=== PATIENT | male | born 1950 | race Caucasian/White ===

== ENCOUNTER → 2024-05-10 08:01 | Outpatient (REF) | payer OTHER, SELFPAY | LOC: HWRCS 08:01 | PROVIDERS: ATTENDING PHYSICIAN Internal Medicine Cardiovascular Disease; FAMILY PHYSICIAN Family Medicine | DX: R06.09 Other forms of dyspnea (principal); I10 Essential (primary) hypertension; E78.49 Other hyperlipidemia | CPT/HCPCS: 93306 ==

== ENCOUNTER → 2024-05-12 10:19 | Outpatient (REF) | payer OTHER, SELFPAY | LOC: RCS 10:19 | PROVIDERS: ATTENDING PHYSICIAN Internal Medicine Cardiovascular Disease; FAMILY PHYSICIAN Family Medicine | DX: R06.09 Other forms of dyspnea (principal); I10 Essential (primary) hypertension; E78.49 Other hyperlipidemia | CPT/HCPCS: 93017 ==

== ENCOUNTER 2024-07-30 20:37 | Inpatient (IN) | payer OTHER, SELFPAY ==
[2024-07-30 15:34] VITALS: BP 168/88
[2024-07-30 15:51] LABS: % Basophils 0.1 % (0-2); % Immature Granulocytes 0.4 % (0-0.5); % Lymphocytes 4.9 % (20.5-51.1); % Monocytes 4.9 % (1.7-9.3); % Neutrophils 89.7 % (42.2-75.2); Absolute Immature Granulocytes 0.1 10^3/uL (0-0.05); Absolute Lymphocytes 1.1 10^3/uL (1.2-3.4); Absolute Monocytes 1.1 10^3/uL (0.1-0.6); Absolute Neutrophils 19.6 10^3/uL (1.4-6.5); Hemoglobin 15.9 g/dL (13.0-18.0); Mean Corp Hgb Conc. 36.1 g/dL (33.0-37.0); Mean Corpuscular Hgb 32.2 pg (27.0-31.0); Mean Corpuscular Volume 89.1 fL (80.0-94.0); Nucleated Red Blood Cells % 0 % (-); Platelet Count 211 10^3/uL (130-400); Red Blood Cell Count 4.94 10^6/uL (4.70-6.10); Red Cell Dist. Width 12.6 % (11.5-14.5); White Blood Cell Count 21.9 10^3/uL (4.8-10.8)
[2024-07-30 16:11] LABS: ALT (SGPT) 36 U/L (0-50); AST (SGOT) 32 U/L (17-59); Albumin 5.1 g/dl (3.5-5.0); Alkaline Phosphatase 54 U/L (38-126); Blood Urea Nitrogen 12 mg/dl (9-20); Calcium 9.8 mg/dl (8.4-10.2); Carbon Dioxide 26 mmol/L (22-30); Chloride 98 mmol/L (98-107); Glucose 158 mg/dl (70-99); Lipase 57 U/L (23-300); Potassium 4.9 mmol/L (3.5-5.1); Sodium 138 mmol/L (135-145); Total Bilirubin 3.3 mg/dl (0.2-1.3); Total Protein 7.7 g/dl (6.3-8.2); eGFR > 60.00
[2024-07-30 17:05] VITALS: BMI 30.4
[2024-07-30 17:11] VITALS: BP 123/71
[2024-07-30 18:00] VITALS: BP 126/63
[2024-07-30] MEDS: NSS 1000 IV (18:22)
[2024-07-30] MEDS: OFIRMEV 100 IV (18:23)
--- NOTE | 2024-07-30 18:37 | ED.GENMED ---
History of Present Illness
General
Chief Complaint: Abdominal Pain
Source: patient
Exam Limitations: none
Time Seen by Provider: 07/30/24 18:00
History of Present Illness
History of Present Illness:
This is a 74 year old male that comes in with c/o abd pain. States that yesterday he thought he had some food poisoning. States that he only eat one meat ball. Then by lat afternoon he felt very bloated and he had abd pain. States that he even tried
to make himself vomit. States that the pain continued to get worse and then started in the Right lower abd. States that he also tried enemas and he had 2 good BM's today. States that he is still having pain and that he had a fever of 100.7 today.
States that he is always SOB. States that he has a slight headache, lightheadedness. Denies any chills, chest pain, nausea, vomiting, diarrhea, urinary burning.
Past History
Past History
ED Past Medical History: HTN, Hypercholesterolemia and Other (Glaucoma)
ED Past Surgical History: Orthopedic (Right partial knee replacement. 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
Social History
Tobacco: Non-smoker
Alcohol: None
Personal:
Living: with family
Employment: Employed
Review of Systems
Review of Systems
All Other Systems: ROS reviewed and negative except as documented in HPI and ROS
Constitutional: Reports fever; Denies chills
EENT: Reports no symptoms
Respiratory: Reports trouble breathing (Always SOB); Denies cough
Cardiac: Reports no symptoms; Denies chest pain
ABD/GI: Reports abdominal pain; Denies nausea, vomiting or diarrhea
: Reports no symptoms; Denies dysuria, frequency or urgency
Musculoskeletal: Reports no symptoms
Skin: Reports no symptoms
Neurological: Reports headache and other (lightheaded); Denies dizzy
Psychiatric: Reports no symptoms
Phy Exam
General Physical Exam
General Presentation: mild distress
General age: appears stated age
General Skin: warm and dry
General Habitus: elderly
General Mental: alert
General Hydration: appears well hydrated
ENT Exam
ENT Exam: TM's normal, pharynx normal and neck supple
Eye Exam
Eye Exam: EOMI
Cardiovascular Exam
Cardiovascular Exam: regular rate/rhythm, no edema and normal peripheral pulses
Pulmonary Exam
Pulmonary Exam: lungs clear, no respiratory distress, no rales, chest non tender, no crackles, no rhonchi, no wheezing and no cough
Gastrointestinal Exam
Gastrointestinal Exam: soft, no organomegaly, no pulsatile mass, non distended, tender (Right sided abd tenderness with palpation, seems to be more upper then lower abd) and other (Hypoactive bowel sounds)
Musculoskeletal Exam
Musculoskeletal Exam: full ROM and no edema
Skin Exam
Skin Exam: normal color, warm/dry, no rash and no petechia
Psychiatric Exam
Psychiatric Exam: normal mood/affect
Course
Orders/Labs/Results
Orders:
Orders
07/30/24 15:44
Complete Blood Count/With Diff Urgent
Comprehensive Metabolic Panel Urgent
Lipase Urgent
07/30/24 18:12
CT Abd/pelvis W Iv Cont Urgent
Comment:
Reason For Exam: Right sided abd pain
0.9% Sodium Chloride 1000 ml [Nss] 1,000 ml IV BOLUS
Acetaminophen 1000MG/100Ml [Ofirmev] 1,000 mg in 100 ml IV ONCE
Acetaminophen IV Indication:: ED Narcotic Naive Pt-ONCE
07/30/24 18:13
Urinalysis Reflex To Culture Urgent
Date Specimen was Collected: 07/30/24
Time Specimen was Collected: 19:29
07/30/24 19:30
Piperacillin/Tazo 3.375 Gram [Zosyn] 3.375 gram in 50 ml IV NOW
Abnormal Lab Results
07/30/24
15:44
WBC 21.9 H 10^3/uL
(4.8-10.8)
MCH 32.2 H pg
(27.0-31.0)
Abs Immat Gran (auto) 0.1 H 10^3/uL
(0-0.05)
Absolute Neuts (auto) 19.6 H 10^3/uL
(1.4-6.5)
Absolute Lymphs (auto) 1.1 L 10^3/uL
(1.2-3.4)
Absolute Monos (auto) 1.1 H 10^3/uL
(0.1-0.6)
Neutrophils % 89.7 H %
(42.2-75.2)
Lymphocytes % 4.9 L %
(20.5-51.1)
Glucose 158 H mg/dl
(70-99)
Total Bilirubin 3.3 H mg/dl
(0.2-1.3)
Albumin 5.1 H g/dl
(3.5-5.0)
07/30/24 15:44
07/30/24 15:44
Leukocytosis, hyperglycemia. Total leah elevated. Albumin slightly elevated. Lipase normal at 57, Urine negative for infection.
Vital Signs
Initial and Last Documented VS:
Initial Vital Signs
Temp Pulse Resp BP Pulse Ox
98.1 F 95 16 168/88 97
07/30/24 15:34 07/30/24 15:34 07/30/24 15:34 07/30/24 15:34 07/30/24 15:34
Last Documented Vital Signs
Temp Pulse Resp BP Pulse Ox
98.1 F 95 24 126/63 97
07/30/24 15:34 07/30/24 18:15 07/30/24 18:15 07/30/24 18:00 07/30/24 18:15
MDM/Problems Addressed
Differential Diagnosis Includes:
Gallbladder disease, Appendicitis,
MDM/Problems Addressed:
This is a 74 year old male that comes in with c/o abd pain. States that this started yesterday and has continued to get worse.
will get labs and CT scan.
Back into see patient. Explained that he would be admitted as he has gallbladder disease. Consult sent to Surgery and Hospitalist notified.
Chronic conditions affecting care:
NA
Acute Exacerbation and/or Progression of Chronic Illness:
NA
*Radiology
Radiology exam reviewed: radiology read reviewed (CT-Cholelithiasis with findings highly suspicious for acute holecystitis in the appropriate clinical context. )
*Pulse Oximetry
Patient hypoxic: no
*EKG
Interpreted by ED Provider?: NA
Rate: EKG- N/A
*Can Striper Interpretation
Rate: normal
Heart Rate: 95
Rhythm: sinus
*Critical Care Note
Total Time (30-74mins, 75-104mins- exclusive of procedures): Not Applicable
ED Attending Note
-
Portions of this chart may have been created with voice recognition software.� Occasional wrong word or��sound alike� substitutions may have occurred due to the inherent limitations of voice recognition software.
Discharge Plan
Departure
Patient Disposition: Admit
Date of Disposition: 07/30/24
Time of Disposition: 20:00
Admit to: Med/Surg
Presentation/result/management discussed w/ accepting MD/DO: Hospitalist
Patient with high blood pressure during this ER visit?: No
Condition: Good
Covid-19: Not Applicable
Discharge Problem:
Cholecystitis, acute with cholelithiasis
Prescriptions:
No Action
ascorbic acid (vitamin C) [Vitamin C] 1,000 mg Tablet
1,000 mg PO DAILY
Theragen Tablet
1 tab PO DAILY
omeprazole 40 mg Capsule,Delayed Release(Dr/Ec)
40 mg PO DAILY
fluticasone propionate [Flonase] 50 mcg/actuation [place],Suspension
2 spray INTRANASAL DAILY
loratadine [Claritin] 10 mg Tablet
10 mg PO HS
valsartan 160 mg Tablet
160 mg PO HS
celecoxib 400 mg Capsule
400 mg PO DAILY
coenzyme Q10 [CoQ-10] 100 mg Capsule
300 mg PO BID
dutasteride 0.5 mg Capsule
0.5 mg PO HS
levocetirizine 5 mg Tablet
5 mg PO DAILY
cholecalciferol (vitamin D3) [Vitamin D3] 50 mcg (2,000 unit) Tablet
50 mcg PO DAILY
pitavastatin calcium 4 mg tablet
4 mg PO HS
Fish Oil 900-1,400 mg Capsule,Delayed Release(Dr/Ec)
1 cap PO BID
Glucosamine Chondroitin 550-30-1 mg Capsule
1 cap PO BID
Referrals:
Vlad Garza DO [Family Provider] -
Interventions
Interventions:
*Risk Screen - Suicide Last Done: 07/30/24 15:34
*General Assessment Last Done: 07/30/24 15:34
*Neglect/Abuse Screening Last Done: 07/30/24 15:34
ED- Fall Risk Assessment Last Done: 07/30/24 17:11
*ED COVID-19 Vaccine History Last Done: 07/30/24 17:06
AB-Qczcti-Tcaqxnodyb Assessment Last Done: 07/30/24 17:11
Discharge Date and Time
Print Language: IVORIAN
[2024-07-30] MEDS: ZOSYN 50 IV (19:44)
[2024-07-30 19:49] VITALS: BP 124/68
[2024-07-30 19:54] LABS: Urine Albumin Trace (Neg - Trace); Urine Bilirubin Negative (Negative); Urine Character Clear (Clear); Urine Color Yellow; Urine Glucose Negative (Negative); Urine Ketone Trace (Negative); Urine Leukocyte Negative (Negative); Urine Nitrite Negative (Negative); Urine Occult Blood Trace (Negative); Urine Specific Gravity 1.015 (<1.030); Urine Urobilinogen 2+ (Neg - 1+)
[2024-07-30 20:00] VITALS: BP 121/66
[2024-07-30 20:03] LABS: Urine Red Blood Cell 0-2 /HPF (0-2)
[2024-07-30 20:04] LABS: Urine Bacteria Few (Negative)
--- NOTE | 2024-07-30 20:25 | HPS.HSE ---
Family Physician
-
Family Physician: Vlad Garza
Chief Complaint
-
Abdominal bloating and pain
History of Present Illness
This is a 74-year-old male with past medical history of BPH, prostate CA status post prostate resection, hypertension, hyperlipidemia, GERD who presents to the emergency department with 1 day history of abdominal pain.
Patient reports development of pain starting overnight initially with bloating and then right sided upper and lower quadrant pain. He reported nausea but no vomiting. He did take a laxative/enema to try to induce bowel movement. He did have a
bowel movement which relieved the bloating but still had persistent abdominal pain. He reported having chills overnight. Denies any diarrhea. Patient denies alcohol use. He denies prior history of gallstones/biliary disease. He does have a
family history of biliary disease in mother. He denies any recent antibiotics. Denies any recent surgeries. He has no recent hospitalizations.
In the emergency department he was afebrile, blood pressure was 126/60, was satting 97% on room air. He had leukocytosis to 21,000 with normal platelet count. Hemoglobin was slightly elevated at 16. Chemistries were mostly unremarkable except for
a total bili of 3.3. LFTs were within normal limits. Lipase was normal.
He had a CT of the abdomen pelvis which showed cholelithiasis with a inflamed gallbladder and distended gallbladder. No mention of stones in the biliary ducts.
Medical History
Past Medical History
Past Medical History: Reports GERD, HTN and Hypercholesterolemia
Past Surgical History: Reports Orthopedic (Partial knee replacement) and Urological (Prostatectomy 10 years ago)
Social History
Tobacco: Non-smoker
Alcohol: None
Drug: None
Personal:
Living: With Family
Employment: Retired
Family History
Family History: Not pertinent
Allergies / Home Medications
Allergies reflects when Allergies were last updated in [employer].
Home Medications with original date entered in [employer]
Allergy/Medication List:
Allergies
Allergy/AdvReac Type Severity Reaction Status Date / Time
No Known Allergies Allergy Verified 07/30/24 15:34
Home Medications
ascorbic acid (vitamin C) 1,000 mg tablet (Vitamin C) 1,000 mg PO DAILY 07/30/24
celecoxib 400 mg capsule 400 mg PO DAILY 07/30/24
cholecalciferol (vitamin D3) 50 mcg (2,000 unit) tablet (Vitamin D3) 50 mcg PO DAILY 07/30/24
coenzyme Q10 100 mg capsule (CoQ-10) 300 mg PO BID 07/30/24
dutasteride 0.5 mg capsule 0.5 mg PO HS 07/30/24
fluticasone propionate 50 mcg/actuation nasal spray,suspension 2 spray intranasal DAILY 07/30/24
glucosamine sulf dipot chlr,msm,chond 550 mg-C 30 mg-lucas 1 mg capsule (Glucosamine Chondroitin) 1 cap PO BID 07/30/24
levocetirizine 5 mg tablet 5 mg PO DAILY 07/30/24
loratadine 10 mg tablet (Claritin) 10 mg PO HS 07/30/24
omega 9-pei-kfp-fish oil 900 mg-1,400 mg capsule,delayed release (Fish Oil) 1 cap PO BID 07/30/24
omeprazole 40 mg capsule,delayed release 40 mg PO DAILY 07/30/24
pitavastatin calcium 4 mg tablet 4 mg PO HS 07/30/24
therapeutic multivitamin 1 tab PO DAILY 07/30/24
valsartan 160 mg tablet 160 mg PO HS 07/30/24
Review of Systems
-
Constitutional: Reports Chills
EENT: Reports No Symptoms
Respiratory: Reports No Symptoms
Cardiac: Reports No Symptoms
Abdomen/GI: Reports Abdominal Pain and Nausea
: Reports No Symptoms
Musculoskeletal: Reports No Symptoms
Skin: Reports No Symptoms
Neurological: Reports No Symptoms
Endocrine: Reports No Symptoms
Hematologic/Lymphatic: Reports No Symptoms
Psych: Reports No Symptoms
Physical Exam
Vital Signs
Vital Signs
Temp Pulse Resp BP Pulse Ox
98.1 F 95 24 126/63 97
07/30/24 15:34 07/30/24 18:15 07/30/24 18:15 07/30/24 18:00 07/30/24 18:15
Physical Exam
General: Well Developed, Well Nourished and Comfortable
HEENT: NormoCephalic, Anicteric, Moist mucous membranes and Atraumatic
Respiratory: Clear
Cardiac: S1/S2 and Regular Rhythm
Breast: Deferred by me
GI: Soft and Tender (Right upper quadrant tenderness to palpation, no guarding or rebound. No splenomegaly)
Rectal: Deferred by Provider
Genito-urinary: Deferred by me
Musculoskeletal: No Clubbing, No Cyanosis and No Edema
Skin: Warm
Neuro: AO x 3
Hematologic/Lymphatic: No Lymphadenopathy
Psych: Calm
Laboratory Results
-
07/30/24 15:44
07/30/24 15:44
Laboratory Results
Total Bilirubin 3.3 mg/dl (0.2-1.3) H 07/30/24 15:44
AST 32 U/L (17-59) 07/30/24 15:44
ALT 36 U/L (0-50) 07/30/24 15:44
Alkaline Phosphatase 54 U/L (38-126) 07/30/24 15:44
Lipase 57 U/L (23-300) 07/30/24 15:44
Data Reviewed
-
CT Scan: Report Reviewed by me
Lab Data: Labs Reviewed by me
Old Records: Reviewed
Impression/Plan
-
IMPRESSION:
74-year-old male generally healthy appearing with history of BPH status post prostatectomy, hypertension, GERD and hyperlipidemia who presents to the emergency department with abdominal pain and was found to have acute cholecystitis on CT scan. No
mention of stones in the gallbladder but did have elevated total bilirubin to 3.3. He had a leukocytosis and chills which is consistent with the acute inflammatory process. He is nontoxic appearing, hemodynamically stable and currently in no acute
distress.
PLAN:
1. Acute Cholecystitis - No obvious cholangitis at this time but possible choledocholithiasis.
- admit to med/surg
- RUQ u/s, and dbili, if + for choledocholithiasis, will get mrcp and GI consultation
- trend bilirubins
- blood cultures if febrile
- zosyn q 6
- NPO, hydration, pain control and antiemetics
- surgery consulted and aware, following patient closely
2. HTN
- will continue ARB for now
3. GERD
- ppi iv
4. BPH
- continue louise reductase inhibition
DVT PPX - lovenox sq
Code Status - Full Code
[2024-07-30 20:47] LABS: Direct Bilirubin 0.4 mg/dl (0.0-0.4)
[2024-07-30] MEDS: TORADOL 10 MG IV (21:14)
[2024-07-30 21:17] LABS: Reticulocyte Count 2.3 % (0.4-2.8)
--- NOTE | 2024-07-30 22:46 | PTCARENOTE ---
Pt received from ED to [id number]. Pt oriented to room and call valle.
[2024-07-30] MEDS: PROSCAR 5 MG PO (23:12)
[2024-07-30] MEDS: DIOVAN 160 MG PO (23:13)
[2024-07-30] MEDS: TYLENOL 650 MG PO (23:16)
[2024-07-30 23:18] VITALS: BP 122/75
[2024-07-30] MEDS: D5/0.45%NACL 1000 IV (23:18)
[2024-07-31] VITALS (11 sets, daily range): BP systolic 101–124; BP diastolic 50–72
[2024-07-31 07:35] LABS: Hematocrit 39.7 % (39.0-52.0); Hemoglobin 14.2 g/dL (13.0-18.0); Mean Corp Hgb Conc. 35.8 g/dL (33.0-37.0); Mean Corpuscular Hgb 33.1 pg (27.0-31.0); Mean Corpuscular Volume 92.5 fL (80.0-94.0); Mean Platelet Volume 9.3 fL (7.4-10.4); Platelet Count 176 10^3/uL (130-400); Red Blood Cell Count 4.29 10^6/uL (4.70-6.10); White Blood Cell Count 25.6 10^3/uL (4.8-10.8)
[2024-07-31 08:05] LABS: ALT (SGPT) 31 U/L (0-50); AST (SGOT) 35 U/L (17-59); Albumin 4.1 g/dl (3.5-5.0); Alkaline Phosphatase 61 U/L (38-126); Blood Urea Nitrogen 16 mg/dl (9-20); Calcium 8.8 mg/dl (8.4-10.2); Carbon Dioxide 25 mmol/L (22-30); Chloride 100 mmol/L (98-107); Direct Bilirubin 0.3 mg/dl (0.0-0.4); Estimated Creatinine Clearance 57 ml/min; Glucose 142 mg/dl (70-99); LDH 194 U/L (120-246); Potassium 4.1 mmol/L (3.5-5.1); Sodium 139 mmol/L (135-145); Total Bilirubin 3.1 mg/dl (0.2-1.3); Total Protein 6.3 g/dl (6.3-8.2); eGFR > 60.00
[2024-07-31 08:30] LABS: INR 1.42; PT 17.2 Sec (11.4-14.6)
[2024-07-31 08:31] LABS: APTT 28.2 Sec (23.4-35.0)
[2024-07-31] MEDS: NSS (PRESERVATIVE FREE) 10 ML IV (08:31)
[2024-07-31] MEDS: TORADOL 10 MG IV ×2 (08:31→19:36)
[2024-07-31] MEDS: PROTONIX IV 40 MG IV (08:31)
--- NOTE | 2024-07-31 08:41 | W.PN.HOSP.TC ---
Addendum entered and electronically signed by Yoel Loving MD 07/31/24 10:18:
I saw and evaluated the patient. I reviewed the resident�s note and agree with findings and plan as documented in the resident�s note.
Patient reports abdominal pain is improving. No vomiting
124/70, 102, 16, 90.3 �F, 94% RA
Gen: NAD, AAOx3.
Eyes: EOMI, PERRLA, no scleral icterus.
Neck: supple.
CV: RRR, +S1/S2, no m/r/g.
Resp: CTAB, no rales, wheezes, or rhonchi.
Abd: +BS, soft, RUQ TTP, ND
Skin: No rashes.
Neuro: CN 2-12 intact, non-focal.
Psych: Normal mood and affect.
Sepsis (POA) due to acute cholecystitis:
-for lap curtis today
-cont Zosyn
Original Note:
Today's Communication/Plan
-
continue antibiotics, NPO; gen surg consult
Assessment / Plan
Assessment / Plan
74yo M with PMH HTN, GERD, BPH, prostate cancer s/p resection who presented to ED 07/30/24 for 1 day of abdominal pain and bloating.
Acute cholecystitis
Cholelithiasis
Leukocytosis
- Tbili 3.3 on admission --> 3.1 this AM. Otherwise LFTs wnl
- WBC 21.9 on admission --> 25.6 this AM. Remains afebrile.
- Abd US 07/30 showed gallstones, sludge, thickened gallbladder wall; no evidence of CBD dilation; hepatomegaly with diffuse fatty liver. Abd CT 07/30 showed cholelithiasis, distended gallbladder with surrounding inflammatory changes/edema
consistent with acute cholecystitis.
- Gen surg consulted, appreciate recs.
- Consider MRCP, GI consult
- Continue zosyn q6h
- Pain well controlled with tylenol, ketorolac. NPO.
HTN- Continue home valsartan 160mg qhs
GERD- Continue IV PPI
BPH- Takes dutasteride at home; continue finasteride inpatient
Sleep apnea- Continue home CPAP; CPAP at bedside
Hyperlipidemia- Takes pitavastatin at home
Code status: Full
VTE ppx: Ambulation as tolerated, lovenox sc
Diet: NPO
Dispo planning: anticipate discharge home pending clinical course; timing TBD
Anticipated Discharge: > 48 hours
Subjective/Interval History
-
Date of Service: July 31, 2024
No acute events overnight. Reports abdominal pain, especially on the right side. His pain is better than when he arrived at hospital, though still present. Also reports headache that began yesterday. Denies lightheadedness, dizziness, chest pain,
shortness of breath, nausea, vomiting, diarrhea, constipation. Last BM yesterday, no black or bloody stools. Currently NPO. OOB to bathroom; at home ambulatory without difficulty, lives with .
Objective Data
-
Labs:
Laboratory Results
07/31/24 07/31/24
07:11 07:59
WBC 25.6 H
Hgb 14.2
Hct 39.7
Plt Count 176
PT 17.2 H
INR 1.42
APTT 28.2
Sodium 139
Potassium 4.1
Chloride 100
Carbon Dioxide 25
BUN 16
Creatinine 1.2
Glucose 142 H
Calcium 8.8
Total Bilirubin 3.1 H
AST 35
ALT 31
Alkaline Phosphatase 61
Vital Signs:
Vital Signs
Temp Pulse Resp BP Pulse Ox
98.3 F 102 16 124/70 94
07/31/24 07:48 07/31/24 07:48 07/31/24 07:48 07/31/24 07:48 07/31/24 07:48
I&O
07/30/24 07/31/24 08/01/24
06:59 06:59 06:59
Intake Total 0 / 0
Balance 0 / 0
Review of Systems
-
History Source: Patient
All other systems: Reviewed and negative
Physical Exam
-
General: Well Developed, Well Nourished, No Apparent Distress, Comfortable and Conversant
HEENT: Normocephalic and Atraumatic
Respiratory: Clear to Auscultation, Wheezes (expiratory wheeze diffusely) and Non Labored Respirations
Cardiac: Regular Rhythm and S1/S2
GI: Soft, Nondistended, Normal Bowel Sounds, Tender (TTP diffusely, worst in RUQ) and Other (no rebound, rigidity; voluntary guarding)
Musculoskeletal: No Edema
Skin: Warm and Dry
Neuro: Awake, Alert, Oriented, AO x 3 and Nonfocal/Grossly Intact
Psych: Calm and Intact Judgement/Insight
Data Reviewed
-
Diagnostic Radiology: Image personally visualized and interpreted and Report Reviewed by me
CT Scan: Report Reviewed by me
Ultrasound: Report Reviewed by me
Labs: Labs Reviewed by me and Discussed with Physician
--- NOTE | 2024-07-31 10:37 | CM ---
Patient seen bedside, initial assessment completed. Patient resides with his in a two story home, [facility]. Patient reports VN in the past after knee surgery, unsure agency, denies SNF or use of DME. Patient PCP
Vlad Garza, pharmacy [facility] or [facility]. Patient denies insecurities at home.
CM received consult for advance directive, paperwork provided to patient. CM will continue to follow for all discharge planning needs.
Plan; home no needs likely.
--- NOTE | 2024-07-31 11:01 | CON.GS ---
Consultation
-
Date/Time Consultation Requested: 07/30/241957
Requesting Provider: Lilibeth
Medical History
-
Chief Complaint: abdominal pain
History of Present Illness:
Mr. Alvarado is a 74 yo male with a h/o kamaljit with cpap, HTN and prostate cancer treated surgically who presented through the ED with upper abdominal pain which began shortly after eating a meatball around 2pm two days ago. He notes he felt quite
bloated with epigastric and right upper quadrant pain. He has been able to pass flatus with last BM yesterday. He denies associated nausea or vomiting. On exam, he is markedly tender the the RUQ with mild epigastric tenderness as well.
Past Medical History
Past Medical History: Cancer (prostate), GERD, HTN, Hypercholesterolemia and Other (obesity)
Past Surgical History: Orthopedic (left wrist, right tkr, right orbit), Urological (prostatectomy) and Other (11 surgeries to left ear/tubes placed)
Social History
Tobacco: Non-Smoker
Alcohol: Occasional
Family History
Family History: Reviewed & Not Pertinent
Allergies / Home Medications
Allergy/AdvReac Type Severity Reaction Status Date / Time
No Known Allergies Allergy Verified 07/30/24 15:34
�Medication �Instructions �Recorded �Confirmed �Type
ascorbic acid (vitamin C) 1,000 mg 1,000 mg PO DAILY Supplement 07/30/24 07/30/24 History
tablet (Vitamin C)
celecoxib 400 mg capsule 400 mg PO DAILY Pain 07/30/24 07/30/24 History
cholecalciferol (vitamin D3) 50 50 mcg PO DAILY Supplement 07/30/24 07/30/24 History
mcg (2,000 unit) tablet (Vitamin
D3)
coenzyme Q10 100 mg capsule 300 mg PO BID Supplement 07/30/24 07/30/24 History
(CoQ-10)
dutasteride 0.5 mg capsule 0.5 mg PO HS BPH 07/30/24 07/30/24 History
fluticasone propionate 50 2 spray intranasal DAILY Allergies 07/30/24 07/30/24 History
mcg/actuation nasal
spray,suspension
glucosamine sulf dipot 1 cap PO BID Supplement 07/30/24 07/30/24 History
chlr,msm,chond 550 mg-C 30 mg-lucas
1 mg capsule (Glucosamine
Chondroitin)
levocetirizine 5 mg tablet 5 mg PO DAILY Allergies 07/30/24 07/30/24 History
loratadine 10 mg tablet (Claritin) 10 mg PO HS Allergies 07/30/24 07/30/24 History
omega 3-pgk-rst-fish oil 900 1 cap PO BID High Cholesterol 07/30/24 07/30/24 History
mg-1,400 mg capsule,delayed
release (Fish Oil)
omeprazole 40 mg capsule,delayed 40 mg PO DAILY Gastrointestinal 07/30/24 07/30/24 History
release Issue
pitavastatin calcium 4 mg tablet 4 mg PO HS High Cholesterol 07/30/24 07/30/24 History
therapeutic multivitamin 1 tab PO DAILY Supplement 07/30/24 07/30/24 History
valsartan 160 mg tablet 160 mg PO HS Blood Pressure 07/30/24 07/30/24 History
Review of Systems
-
History Source: Patient
All other systems: Negative unless noted
A 10 point review of systems was completed, and was negative except as per HPI.
Physical Exam
Vital Signs
Temp Pulse Resp BP Pulse Ox
98.3 F 102 16 124/70 94
07/31/24 07:48 07/31/24 07:48 07/31/24 07:48 07/31/24 07:48 07/31/24 07:48
07/30/24 07/31/24 08/01/24
06:59 06:59 06:59
Actual Weight 94.755 kg
Body Mass Index (BMI) 30.0
Lab Results
07/31/24 07:11
07/31/24 07:11
WBC 25.6 10^3/uL (4.8-10.8) H 07/31/24 07:11
Hgb 14.2 g/dL (13.0-18.0) 07/31/24 07:11
Hct 39.7 % (39.0-52.0) 07/31/24 07:11
Plt Count 176 10^3/uL (130-400) 07/31/24 07:11
Abs Immat Gran (auto) 0.1 10^3/uL (0-0.05) H 07/30/24 15:44
Neutrophils % 89.7 % (42.2-75.2) H 07/30/24 15:44
Physical Exam
General: Well Developed and Well Nourished
HEENT: Moist Mucous Membranes
Respiratory: Non Labored Respirations
GI: Soft and Tender (RUQ across epigastric area)
Skin: Warm and Dry
Neuro: Awake, Alert and AO x 3
Psych: Calm
Data Reviewed
-
CT Scan: Image Personally Visualized and interpreted (Cholelithiasis with gallbladder distention and surrounding inflammatory changes concerning for cholecystitis), Report Reviewed by me, Discussed with Physician and Discussed with Patient
Ultrasound: Image Personally Visualized and interpreted (gallstone/sludge present and thickened wall), Report Reviewed by me, Discussed with Physician and Discussed with Patient
Labs: Labs Reviewed by me and Discussed with Patient
Old Records: Reviewed
Assessment / Plan
-
74 yo male with a h/o kamaljit with cpap, HTN and prostate cancer treated surgically who presented through the ED with upper abdominal pain which began shortly after eating a meatball around 2pm two days ago. Leukocytosis present. Bilirubin elevated but
direct bili is normal. No transaminitis. RUQ pain on exam. US/CT imaging is consistent with acute calculous cholecystitis. AFVSS.
--Keep NPO
--Plan OR later today for laparoscopic cholecystectomy
--c/w IV abx
--Analgesics/antiemetics prn
--SCD's for VTE ppx
--- NOTE | 2024-07-31 15:36 | W.IMMPOSTOP ---
Surgical Immed Post Op Note
-
Primary Surgeon: Alexei Humphries MD
Assisting Surgeon: GREER Espinoza NP
Pre-op Diagnosis: Acute cholecystitis
Post-op Diagnosis: Acute gangrenous cholecystitis
Procedure Performed: Laparoscopic cholecystectomy
Anesthesia Type: General
Specimen / Cultures: Bile aspirate
Estimated Blood Loss: 25 mL
Complications: None
Operative Findings: Gallbladder was swollen, inflamed with scattered patches of mural necrosis, and purulence along the gallbladder fossa; triply clipped the cystic duct and doubly clipped the cystic artery after obtaining the critical view of
safety; copiously irrigated the right upper quadrant until the effluent was clear
--- NOTE | 2024-07-31 15:42 | OR.RPT ---
Operative Report
Operative Report
DATE OF OPERATION: 07/31/2024
SURGEON: Alexei Humphries MD
PREOPERATIVE DIAGNOSIS: Acute cholecystitis
POSTOPERATIVE DIAGNOSIS: Acute gangrenous cholecystitis
OPERATION: Laparoscopic cholecystectomy
ASSISTANTS:
1. GREER Espinoza, JOE
ANESTHESIA: General
ESTIMATED BLOOD LOSS: 25 mL
FINDINGS:
1. Gallbladder severely edematous and inflamed with scattered patches of mural necrosis; purulence noted within the gallbladder fossa
2. Decompressed the gallbladder with laparoscopic needle aspiration, removing 50 mL of dark bilious fluid, sent for culture
3. Obtained critical view of safety and triply clipped the cystic duct and doubly clipped the cystic artery
SPECIMENS:
1. Gallbladder fluid culture
2. Gallbladder
DRAINS: None
COMPLICATIONS: No immediate complications.
INDICATIONS: The patient is a 74-year-old male who presented with 1 day of epigastric to right upper quadrant abdominal pain. Never happened before. His WBC was initially 21.9, was repeated this morning and increased to 25.6. An ultrasound was
done showing gallstones, gallbladder wall thickening and pericholecystic fluid. Therefore, I recommended a cholecystectomy. The operation was discussed with the patient in detail, including the risks, benefits and alternatives. Risks described
included, but not limited to, bleeding, infection, damage to nearby structures (i.e., common bile duct, liver, bowel), conversion to open, risk that symptoms do not improve after cholecystectomy, and anesthetic risks. The patient understood and
agreed to proceed. The consent was signed and placed in the chart.
PROCEDURE IN DETAIL: The patient was taken to the operating room and placed on the operating table in supine position. Sequential compression devices were placed bilaterally. General anesthesia was then induced and the patient was intubated without
complication. The patient was secured to the bed with 2 seatbelts and the arms were secured to the armboards. A footboard was placed in case steep reverse Trendelenburg positioning becomes necessary. Anesthesia placed an orogastric tube. 3.275 g
of Zosyn were given pre-incision. The abdomen was then shaved, prepped and draped in the usual sterile fashion. A time-out was then performed verifying the correct patient, procedure, operative site, positioning, and special equipment.
An 11 blade scalpel was used to create a stab incision at Woodson's point. The Veress needle was carefully inserted. After three clicks, insufflation was attached to the Veress needle and an opening pressure of less than 8 mmHg was noted. The
abdomen was insufflated to a pressure of 15 mmHg. The patient tolerated insufflation well. Next, the 11 blade scalpel was used to create a 5 mm incision along the midline about 15 cm from the target anatomy. Using the 5-0 camera and the Optiview
trocar, the first 5 mm port was placed under direct visualization ensuring no injury to adjacent organs. A 5-30 camera was then connected and inserted, and the abdomen was inspected. No injury from initial trocar placement or Veress needle
placement was noted. Due to the redundant omentum covering the liver, the gallbladder was not initially seen. A 12 mm trocar was placed in the right epigastrium just lateral to the falciform ligament under direct visualization. Using a
laparoscopic graspers, the omentum was retracted away and the gallbladder was visualized. It appeared edematous, inflamed and with patchy areas of mural necrosis. No obvious perforation was noted. Additional trocars were then inserted under
direct visualization in the following locations: two 5 mm trocars along the right costal margin in the anterior axillary line and mid-axillary line. The table was placed in steep reverse Trendelenburg position with the right side up.
A laparoscopic needle was used to aspirate bile from the gallbladder as it was too distended to be grasped. About 50mL of bile was aspirated. The bile aspirate was sent for culture. The dome of the gallbladder was grasped with a locking
atraumatic grasper and retracted over the dome of the liver. Inflammatory adhesions were taken down bluntly between the omentum and the gallbladder. The infundibulum was also grasped with an atraumatic grasper and retracted toward the right lower
quadrant to expose the triangle of Calot. The peritoneum was then scored and incised with electrocautery along the medial and lateral margins of the gallbladder. Using a combination of hook cautery and blunt dissection, the cystic duct and cystic
artery were identified and circumferentially dissected. This was difficult due to the inflammatory rind and thickened peritoneum overlying the gallbladder. After careful dissection, the critical view of safety was achieved. The cystic duct was
then clipped 5 times. The cystic artery was clipped 3 times. Both were divided with laparoscopic scissors so that 3 clips remained on the cystic duct stump and 2 clips remaining on the cystic artery. During the dissection, bile spillage from the
gallbladder was encountered. This was quickly controlled with suction.
The gallbladder was then dissected from its peritoneal attachments to the gallbladder fossa by electrocautery. There was significant purulent material within this plane, but no obvious abscess was encountered. Prior to complete removal of the
gallbladder, the gallbladder fossa was closely evaluated. No liver injuries were identified and hemostasis was assured using electrocautery. The gallbladder was then placed in an endoscopic retrieval bag through the epigastric port and set to the
side. The gallbladder fossa was then irrigated copiously with saline and suctioned. There was no evidence of bleeding from the gallbladder fossa or cystic artery or leakage of bile from the cystic duct stump. Then, the specimen was removed from
the epigastric port. Due to the size of the inflamed gallbladder, the fascia had to be stretched with a Payal clamp and slightly enlarged with electrocautery. The gallbladder was passed off as specimen. The fascia of the epigastric port was
closed with an 0 Vicryl figure-of-8 stitch using laparoscopic visualization and a suture passer. The remaining ports were removed under direct vision and no bleeding was noted from the trocar sites. The laparoscope was withdrawn and the umbilical
trocar removed. The abdomen was allowed to collapse. The port sites were injected with 30mL of 0.25% Marcaine with epinephrine mixed with 0.3mg of dexamethasone for local anesthesia. The skin was closed with subcuticular sutures of 4-0 Monocryl
and Dermabond.
At this point, the procedure was complete. All needle, sponge and instrument counts were correct. The patient tolerated the procedure well. The patient was extubated without complication and was transferred to the recovery room in stable condition.
Of note, GREER Espinoza, VARNISH DIPPER, pathologist assistant, was necessary during this procedure for traction, countertraction, and exploratory purposes. I was present for the entire duration of the case.
DICTATED BY: Alexei Humphries MD
[2024-07-31] MEDS: ZOSYN IV (16:29)
[2024-07-31] MEDS: D5/0.45%NACL 1000 IV (16:36)
[2024-07-31] MEDS: LOVENOX 40 MG SC (17:25)
--- NOTE | 2024-07-31 17:41 | PTCARENOTE ---
rec'd pt from PACU. IVF restarted. pt ordered clear liquids. denies pain at this time. Vitals per protocol.
[2024-07-31] MEDS: ZOSYN 50 IV (19:36)
[2024-07-31] MEDS: DIOVAN 160 MG PO (21:10)
[2024-07-31] MEDS: PROSCAR 5 MG PO (21:10)
[2024-08-01] MEDS: ZOSYN 50 IV ×3 (01:51→14:18)
[2024-08-01 03:17] VITALS: BP 124/68
[2024-08-01] MEDS: D5/0.45%NACL 1000 IV (06:12)
[2024-08-01] MEDS: TORADOL 10 MG IV (06:19)
[2024-08-01 07:00] VITALS: BP 123/74
[2024-08-01 07:28] LABS: Hematocrit 38.6 % (39.0-52.0); Hemoglobin 13.5 g/dL (13.0-18.0); Mean Corpuscular Volume 94.4 fL (80.0-94.0); Mean Platelet Volume 9.9 fL (7.4-10.4); Platelet Count 169 10^3/uL (130-400); Red Blood Cell Count 4.09 10^6/uL (4.70-6.10); Red Cell Dist. Width 13.1 % (11.5-14.5); White Blood Cell Count 18.7 10^3/uL (4.8-10.8)
--- NOTE | 2024-08-01 08:08 | W.PN.HOSP.TC ---
Addendum entered and electronically signed by Lilly Head MD, Resident 08/01/24 14:27:
At bedside to evaluate patient this afternoon. Ate low fat diet for lunch, tolerated well. Abdominal pain 2 out of 10, exacerbated by cough/movement. We discussed expected postoperative pain and pain management strategies. Reviewed return
precautions. Stable for discharge home today, orders in.
Addendum entered and electronically signed by Yoel Loving MD 08/01/24 12:24:
I saw and evaluated the patient. I reviewed the resident�s note and agree with findings and plan as documented in the resident�s note.
Still with RUQ abd pain.
Gen: NAD, AAOx3.
Eyes: EOMI, PERRLA, no scleral icterus.
Neck: supple.
CV: remains RRR, +S1/S2, no m/r/g.
Resp: CTAB anteriorly, no rales, wheezes, or rhonchi.
Abd: remains +BS, soft, RUQ TTP, ND
Skin: No rashes.
Neuro: CN 2-12 intact, non-focal.
Psych: Normal mood and affect.
Sepsis (POA) due to acute cholecystitis:
-s/p lap curtis 07/31/24
-cont Zosyn for now, d/c on Augmentin
-advance diet to low fat, if pt tolerates diet he is medically cleared for discharge
Original Note:
Today's Communication/Plan
-
AM CMP pending, culture pending, advance diet per gen surg
Assessment / Plan
Assessment / Plan
74yo M with PMH HTN, GERD, BPH, prostate cancer s/p resection who presented to ED 07/30/24 for 1 day of abdominal pain and bloating.
Acute gangrenous cholecystitis, cholelithiasis s/p laparoscopic cholecystectomy 07/31
Leukocytosis
Indirect hyperbilirubinemia
- Tbili 3.3, dirbili 0.4 on admission --> 3.1, 0.3 yesterday --> AM CMP pending. Otherwise normal LFTs.
- WBC 21.9 on admission --> 18.7 this AM. Remains afebrile.
- Abd US 07/30 showed gallstones, sludge, thickened gallbladder wall; no evidence of CBD dilation; hepatomegaly with diffuse fatty liver. Abd CT 07/30 showed cholelithiasis, distended gallbladder with surrounding inflammatory changes/edema
consistent with acute cholecystitis.
- Gen surg consulted, s/p lapsc curtis 07/31. Per op report, gallbladder was severely edematous, inflamed, with patches of mural necrosis, purulence within gb fossa. Lapsc needle aspiration of 50ml bilious fluid --> culture pending.
- Continue zosyn q6h
- Pain well controlled with tylenol, ketorolac.
- Continue clear liquid diet, advance diet per gen surg.
HTN- Continue home valsartan 160mg qhs
GERD- Continue IV PPI
BPH- Takes dutasteride at home; continue finasteride inpatient
Sleep apnea- Continue home CPAP; CPAP at bedside
Hyperlipidemia- Takes pitavastatin at home
Code status: Full
VTE ppx: Ambulation as tolerated, lovenox sc
Diet: Clear liquid
Dispo planning: anticipate discharge home pending clinical course; timing TBD
Anticipated Discharge: 24 - 48 hours
Subjective/Interval History
-
Date of Service: August 01, 2024
No acute events overnight. Abdominal pain present, rates 2 out of 10 on pain scale, exacerbated by bending over which also causes shortness of breath due to pain. Otherwise, he is not experiencing shortness of breath. Denies lightheadedness,
dizziness, chest pain, nausea, vomiting, diarrhea. Tolerating clear liquid diet. Ambulating in room without difficulty.
Objective Data
-
Labs:
Laboratory Results
08/01/24
06:10
WBC 18.7 H
Hgb 13.5
Hct 38.6 L
Plt Count 169
Sodium Pending
Potassium Pending
Chloride Pending
Carbon Dioxide Pending
BUN Pending
Creatinine Pending
Glucose Pending
Calcium Pending
Total Bilirubin Pending
AST Pending
ALT Pending
Alkaline Phosphatase Pending
Vital Signs:
Vital Signs
Temp Pulse Resp BP Pulse Ox
97.9 F 88 18 124/68 95
08/01/24 03:17 08/01/24 03:17 08/01/24 03:17 08/01/24 03:17 08/01/24 03:17
I&O
07/31/24 08/01/24 08/02/24
06:59 06:59 06:59
Intake Total 0 / 0 1390 / 1390
Output Total 900 / 900
Balance 0 / 0 490 / 490
Review of Systems
-
History Source: Patient
All other systems: Reviewed and negative
Physical Exam
-
General: Well Developed, Well Nourished, No Apparent Distress, Comfortable, Conversant and Other (sitting comfortably on edge of bed)
HEENT: Normocephalic and Atraumatic
Respiratory: Clear to Auscultation and Non Labored Respirations
Cardiac: Regular Rhythm and S1/S2
GI: Soft, Nondistended, Normal Bowel Sounds, Tender (mild TTP diffusely, worst in RUQ) and Other (no rebound, rigidity; voluntary guarding; lapsc incisions clean dry intact with overlying skin glue, no drainage)
Musculoskeletal: No Edema and Other (SCDs on)
Skin: Warm and Dry
Neuro: Awake, Alert, Oriented and Nonfocal/Grossly Intact
Psych: Calm and Intact Judgement/Insight
Data Reviewed
-
Diagnostic Radiology: Image personally visualized and interpreted and Report Reviewed by me
CT Scan: Report Reviewed by me
Ultrasound: Report Reviewed by me
Labs: Labs Reviewed by me and Discussed with Physician
[2024-08-01] MEDS: NSS (PRESERVATIVE FREE) 10 ML IV (08:13)
[2024-08-01] MEDS: PROTONIX IV 40 MG IV (08:14)
[2024-08-01 08:45] LABS: ALT (SGPT) 65 U/L (0-50); AST (SGOT) 56 U/L (17-59); Albumin 3.4 g/dl (3.5-5.0); Alkaline Phosphatase 78 U/L (38-126); Blood Urea Nitrogen 20 mg/dl (9-20); Calcium 8.1 mg/dl (8.4-10.2); Carbon Dioxide 25 mmol/L (22-30); Chloride 99 mmol/L (98-107); Estimated Creatinine Clearance 53 ml/min; Glucose 167 mg/dl (70-99); Potassium 3.8 mmol/L (3.5-5.1); Sodium 139 mmol/L (135-145); Total Bilirubin 1.8 mg/dl (0.2-1.3); Total Protein 5.8 g/dl (6.3-8.2); eGFR 58.37
--- NOTE | 2024-08-01 09:44 | W.PN.CRS1 ---
Today's Communication / Plan
-
As below
Assessment/Plan
-
74-year-old male with PMH of prostate cancer s/p prostatectomy, HTN, HLD, GERD who presents with 1 day of epigastric to RUQ abdominal pain after eating meatballs, denies N/V or fevers; WBC 21.9, CT AP showing gallstones with surrounding gallbladder
inflammation; RUQ ultrasound showing gallstones, gallbladder wall thickening, negative Badillo sign, nondilated CBD; T. bili 3.3, indirect bili 0.4, LFTs normal
POD 1 lap ccy
AFVSS
WBC 18.7 from 25.6, T. bili 1.8 from 3.1, LFTs normal
� Advance to low-fat diet
� Pain control with Toradol, Tylenol, oxycodone as needed
� Total bilirubin declining, possibly elevated due to acute phase reactant
�Appreciate primary for further workup if necessary
� Continue IV Zosyn; will switch to p.o. on discharge for a 7-day course total
�Appreciate hospitalist
Subjective Data
Subjective Data
Date of Service: August 01, 2024
No overnight events.
Having some pain, has not tried pain medicine.
Denies nausea/vomiting. Tolerating clears.
Pt is OOB.
Objective Data
-
Vital Signs
Temp Pulse Resp BP Pulse Ox
97.6 F 87 18 123/74 98
08/01/24 07:00 08/01/24 07:00 08/01/24 07:00 08/01/24 07:00 08/01/24 07:00
Intake & Output
07/31/24 08/01/24 08/02/24
06:59 06:59 06:59
Intake Total 0 / 0 1390 / 1390
Output Total 900 / 900
Balance 0 / 0 490 / 490
Intake:
Oral fluids 0 / 0 240 / 240
IV fluids (Total) 1150 / 1150
Normosol 150 / 150
Output:
Urine, Voided 900 / 900
Other:
Number of approximated MODERATE 1
amounts of urine
Number of approximated LARGE 2
amounts of urine
Lab Results
08/01/24 06:10
08/01/24 06:10
Physical Exam
-
General: No Acute Distress and AOx3
HEENT: Grossly Normal
Abdomen: Soft, Non Distended, Tender (Appropriately tender near incisions), No Guarding and No Rebound
Skin: Warm and Dry
Wound: No Signs of Infection, Dressing in Place (Dermabond) and No Skin Erythema
[2024-08-01] MEDS: TYLENOL 1000 MG PO (12:02)
--- NOTE | 2024-08-01 12:37 | W.DCSUMMARY ---
Addendum entered and electronically signed by Yoel Loving MD 08/01/24 13:10:
Read, reviewed, and agree. See same day progress note for additional details. Time spent coordinating care, DC planning, review of DC plan of care with resident, transition of care, review of records in EMR, med rec, consults, notes, d/w
consultants, nursing, family, and CM = 32 mins
Original Note:
Discharge Summary
Discharge Data
Date of Admission: 07/30/24
Date of Discharge: 08/01/24
-
Pending Results: Yes
Additional Pending Results:
Microbiology
07/31/24 14:46 Gram Stain - Preliminary
Abdomen
Hospital Course
Discharging Physician : Dr. Head, Dr. Loving
Disposition : Home
Primary care physician : Vlad Garza
Principal Discharge diagnosis : Sepsis present on admission due to acute cholecystitis, cholelithiasis
Status post laparoscopic cholecystectomy 07/31/24
Chronic Discharge diagnosis : Hypertension, gastroesophageal reflux disease, prostatic hypertrophy, history of prostate cancer status post resection, sleep apnea
Hospital Course : Presented to ED 07/30 for abdominal pain and bloating. He was found to have acute cholecystitis and cholelithiasis. He was treated with IV antibiotics and general surgery was consulted. He underwent laparoscopic cholecystectomy on
07/31/24. On day of discharge, he was stable. He was discharged home with a course of oral antibiotics. He will follow up with general surgery outpatient as well as his primary care provider.
Important imaging findings :
Abdomen CT with IV contrast 07/30/24
Findings:
Visualized portion of the lung bases demonstrate mild bilateral lower lobe dependent subsegmental atelectasis.
Hepatic steatosis. Simple left renal cyst for which no follow-up imaging is recommended. The spleen, right kidney, adrenal glands and pancreas are within normal limits. Gallbladder contains a few calcified stones. Distended gallbladder with
surrounding inflammatory change/edema.
No abdominal aortic aneurysm.
No enlarged lymph nodes, free fluid, or free air. Diverticulosis coli without evidence for diverticulitis. Normal appendix. The bowel is without evidence of obstruction or adjacent inflammatory changes.
Bladder unremarkable.
Grossly no suspicious osseous lesions are identified.
IMPRESSION:
1. Cholelithiasis with findings highly suspicious for acute cholecystitis in the appropriate clinical context.
Abdomen ultrasound 07/30/24
FINDINGS and IMPRESSION: The gallbladder is relative prominent in caliber with small gallstones, sludge and thickened wall. There is no reported tenderness is elicited with the ultrasound transducer over the gallbladder and no findings to confirm
biliary tract dilatation. Hepatomegaly with diffuse fatty liver. Hepatic and portal veins are patent.
Chest xray 07/31/24
IMPRESSION:
Low lung volumes with mild elevation of right hemidiaphragm.
Mild patchy bibasilar opacity most likely representing subsegmental atelectasis and/or pneumonia.
Procedure findings :
Laparoscopic cholecystectomy 07/31/24
Operative Findings: Gallbladder was swollen, inflamed with scattered patches of mural necrosis, and purulence along the gallbladder fossa; triply clipped the cystic duct and doubly clipped the cystic artery after obtaining the critical view of
safety; copiously irrigated the right upper quadrant until the effluent was clear
Discharge Plan
-
Patient Disposition: Home (Routine Discharge)
Discharge Diagnosis/Procedures: Acute cholecystitis, cholelithiasis
Status post laparoscopic cholecystectomy 07/31/24
Condition: Good
Diet: Low Fat
Activity: No strenuous activity
Additional Activity: do not lift over 15lbs for the next 2-3 weeks
Driving Restrictions: Wait until comfortable twisting/off narcotics
Bathing Restrictions: OK to Shower
Blood Work: Repeat CBC and CMP per your primary care provider or general surgeon
Wound Care: The glue over your incisions will flake off on it's own. Avoid scrubbing or picking it off. Do not apply ointments or creams
Instructions: Cholecystectomy (DC), Low-fat diet
Referrals:
Vlad Garza DO [Family Provider] - in less than 1 week (Call your primary care provider to schedule appointment within 1 week of hospital discharge)
Alexei Humphries MD [Active] - in two to three weeks
Additional Discharge Medication Instructions: Continue your medications the same as before coming to the hospital.
Take tylenol or NSAIDs for pain before trying prescription medication. If your pain is still moderate or severe and you need something stronger, please call your doctor.
Prescriptions:
New
amoxicillin-pot clavulanate 875-125 mg tablet
1 tab PO Q12H 5 Days Qty: 10 0RF
Rx Instructions:
Take 1 tab every 12 hours starting 08/01 evening
oxycodone 5 mg tablet
5 mg PO Q6H PRN (Reason: Pain) Qty: 20 0RF
Continued
ascorbic acid (vitamin C) [Vitamin C] 1,000 mg Tablet
1,000 mg PO DAILY
therapeutic multivitamin Tablet
1 tab PO DAILY
omeprazole 40 mg Capsule,Delayed Release(Dr/Ec)
40 mg PO DAILY
fluticasone propionate 50 mcg/actuation Casar,Suspension
2 spray INTRANASAL DAILY
loratadine [Claritin] 10 mg Tablet
10 mg PO HS
valsartan 160 mg Tablet
160 mg PO HS
celecoxib 400 mg Capsule
400 mg PO DAILY
coenzyme Q10 [CoQ-10] 100 mg Capsule
300 mg PO BID
dutasteride 0.5 mg Capsule
0.5 mg PO HS
levocetirizine 5 mg Tablet
5 mg PO DAILY
cholecalciferol (vitamin D3) [Vitamin D3] 50 mcg (2,000 unit) Tablet
50 mcg PO DAILY
pitavastatin calcium 4 mg tablet
4 mg PO HS
Fish Oil 900-1,400 mg Capsule,Delayed Release(Dr/Ec)
1 cap PO BID
Glucosamine Chondroitin 550-30-1 mg Capsule
1 cap PO BID
Discharge Date and Time
Print Language: BULGARIAN
--- NOTE | 2024-08-01 14:24 | CM ---
Pt seen bedside w/ spouse.
IMM reviewed, pt given copy. Copy placed into chart
Per resident, pt d/c today
Spouse will transport at d/c
Plan: Home no needs
[2024-08-01 15:09] VITALS: BP 110/51
[2024-08-01 16:09] VITALS: BP 110/51
[2024-08-03 00:09] LABS: Haptoglobin 180 mg/dL (30-200)
== END 2024-08-01 16:17 | disposition home or self-care (01) | DRG 854 ==
LOC: 4 WEST ACU 20:37
PROVIDERS: Clinical Nurse Specialist Family Health; Emergency Medicine; Student in an Organized Health Care Education/Training Program; ADMITTING PHYSICIAN Internal Medicine; ATTENDING PHYSICIAN Internal Medicine; CONSULT PHYSICIAN Surgery; EMERGENCY PHYSICIAN Student in an Organized Health Care Education/Training Program; FAMILY PHYSICIAN Family Medicine
PROC: 0FT44ZZ Resection of Gallbladder, Percutaneous Endoscopic Approach (ICD-10-PCS; 2024-07-31)
DX: A41.9 Sepsis, unspecified organism (principal); K80.00 Calculus of gallbladder with acute cholecystitis without obstruction; K82.A1 Gangrene of gallbladder in cholecystitis; E78.00 Pure hypercholesterolemia, unspecified; E66.9 Obesity, unspecified; H40.9 Unspecified glaucoma; I10 Essential (primary) hypertension; K21.9 Gastro-esophageal reflux disease without esophagitis; K57.30 Diverticulosis of large intestine without perforation or abscess without bleeding; K76.0 Fatty (change of) liver, not elsewhere classified; N40.0 Benign prostatic hyperplasia without lower urinary tract symptoms; G47.30 Sleep apnea, unspecified; Z85.46 Personal history of malignant neoplasm of prostate; Z90.79 Acquired absence of other genital organ(s); Z96.651 Presence of right artificial knee joint; Z79.899 Other long term (current) drug therapy; Z68.30 Body mass index [BMI] 30.0-30.9, adult
CPT/HCPCS: 88304; 71045; 74177; 76705; 80053; 81003; 81015; 82248; 83010; 83615; 83690; 85025; 85027; 85045; 85610; 85730; 86850; 86900; 86901; 87070; 87075; 87077; 87205; 93005; 96361; 96365; 96375; 99285; Q9967

== ENCOUNTER → 2025-09-05 08:08 | Outpatient (REF) | payer OTHER, SELFPAY | LOC: RAD 08:08 | PROVIDERS: ATTENDING PHYSICIAN Internal Medicine Cardiovascular Disease; FAMILY PHYSICIAN Family Medicine | DX: E78.49 Other hyperlipidemia (principal); M79.605 Pain in left leg | CPT/HCPCS: 76770; 93922; 93925 ==